=== PATIENT | male | born 1970 | race Asian ===

== ENCOUNTER 2024-07-28 11:11 | Outpatient (REF) | payer MEDICAID, SELFPAY | END 2024-07-28 11:12 | disposition home or self-care (01) | LOC: HO.HOSX 11:11 | PROVIDERS: Visit Provider Orthopaedic Surgery | DX: M25.512 Pain in left shoulder (principal) | CPT/HCPCS: 73030; 99202 ==

== ENCOUNTER 2024-07-28 11:17 | Outpatient (AMB) | payer MEDICAID, SELFPAY ==
--- NOTE | 2024-07-28 11:28 | A.OFFVIS_ITS ---
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 The patient describes his pain as sharp in nature. He states that his pain has been getting worse over the last few years. He has tried Tylenol and anti- inflammatory medicines which gave him only mild relief. He has not had an i njection. The patient states that he recently had an MRI of his left shoulder but he is not sure at which facility it was performed. He has not been to physical therapy. Chemical Processor Required: Yes Chemical Processor Language: Other Chemical Processor Services: Chemical Processor Present Chemical Processor Name: [id number] Accompanied by: Self / Same As Patient Allergies No Known Allergies Allergy (Verified 07/28/24 11:47) Medication List - Last Reconciled 07/28/24 by Derrick Sawyer MD atorvastatin 40 mg PO BEDTIME bupropion HCl XL 300 mg PO DAILY dulaglutide (Trulicity) 1.5 mg subcut QWEEK empagliflozin (Jardiance) 25 mg PO QAM hydrochlorothiazide 25 mg PO QAM insulin glargine (Lantus Solostar U-100 Insulin) 10 units subcut QAM losartan 100 mg PO BEDTIME meclizine 25 mg PO TID PRN metformin 1,000 mg PO BID sertraline 50 mg PO DAILY tamsulosin 0.4 mg PO DAILY Physical Exam Const Other: Well-nourished well-developed very friendly male awake alert and oriented x3 in no acute distress Extrem Other: Bilateral upper extremity examination shows good capillary refill, no skin lesions noted, normal sensation light touch Left shoulder examination shows almost full range of motion when compared to his right shoulder, 4+ out of 5 strength with supraspinatus testing, positive impingement signs, tenderness over his acromioclavicular joint, no instability Results Reviewed Results Reviewed: X-rays of the patient's left shoulder show severe acromioclavicular joint narrowing, a type 2 acromion, no acute bony abnormalities Assessment & Plan Assessment & Plan (1) Impingement syndrome of left shoulder: Code(s): M75.42 - Impingement syndrome of left shoulder Category: Medical Plan Mr. Wilder presents with left shoulder pain due to impingement syndrome and acromioclavicular joint arthritis as well as possible rotator cuff tearing. I had a lengthy discussion with the patient regarding the treatment options. The risks and benefits of a cortisone injection were discussed at length with the patient. The patient is interested in proceeding with an injection but he would rather have it performed at his primary care office. I have no problem with this. The patient does not wish to go to formal physical therapy at this time. He will follow up with me on an as-needed basis should his symptoms not plateau at an unacceptable level over the next few months. At that time he will also bring a copy of his MRI so that I may reviewed with him. Feel free to call me at any time should questions regarding his orthopedic management arise. I spent 22 minutes in reviewing the patient's records and imaging studies, seeing the patient and documenting in the medical record. Orders: Orders XR shoulder LT min 2V Today M25.512 - Pain in left shoulder Coding Level of Care Code New Pt Level 3 (34662) Complex EM visit Add On G2211 Diagnoses Impingement syndrome of left shoulder M75.42
== END 2024-07-28 12:10 | disposition home or self-care (01) ==
LOC: HO.HOS 11:18
PROVIDERS: PCP Student in an Organized Health Care Education/Training Program; Visit Provider Orthopaedic Surgery
DX: M75.42 Impingement syndrome of left shoulder (principal)
CPT/HCPCS: 99203